=== PATIENT | male | born 1950 | race Caucasian/White ===

== ENCOUNTER → 2019-04-18 | Outpatient (CLI) | payer MEDICARE ==
[~2019-04-18] MED LIST: ACET500T68 PO; ALPR0.5T6 PO; DICL100G18 TP; FAMO20TA5 PO; IOHEXOL 180 MG/ML 10 ML VIAL. ONE; LIDO76.5 TP; LISI1TAB23 PO; MULT-658 PO; NAPR-695 PO; methylPREDNISolone ACETATE 40 MG/ML VIAL. ONE; methylPREDNISolone ACETATE 80 MG/ML VIAL. ONE
--- NOTE | 2019-04-19 03:17 | PAIN ---
DATE OF SERVICE: 04/18/2019 INITIAL CONSULTATION FOR PAIN CLINIC CHIEF COMPLAINT: Low back and bilateral lower extremity pain, left greater than right. HISTORY OF PRESENT ILLNESS: This is a 69-year-old male, who presents with history of pain in the low back and into the lower extremities. Since about November of this year, the patient reports no specific injury or action he is aware of. He was sitting in his car, twisted to the side to reach something next to him, felt a popping sensation in his back and has had pain in the back and the legs ever since. The patient reports it is slightly better. He had some chiropractic treatment, which has been helpful, but not decreasing the pain completely. He had done some physical therapy as well as some stretching and strengthening exercises on his own; all of which helped, but they are not getting the pain down significantly fdc. The patient reports the pain is constant, it is intermittent in intensity, changes during the day, radiating into the lower extremities, mostly in the lateral anterior thighs, posterior calves and hips as well, but in the medial lower leg also. The patient reports no loss of motor function, but significant fatigability to the lower extremities, especially on the left side with walking, worse with standing, walking, changing positions, awakens him from sleep at least once or twice at night. It does not affect his bowel or bladder control, but does affect his ability to walk. He is not using any assistive devices, however. The patient did have MRI scan of the lumbar spine showing L4-L5 [id number] disk space narrowing with marked right foraminal stenosis, disk osteophyte complex with impingement on the anterior surface of the foraminal L4 nerve root. L5-S1 shows similar changes with left foraminal extraforaminal disk bulging, approaching the anterior surface of the left foraminal L5 nerve root. The patient rates his disability rating from 0-10, 10 being the worst, as a 5 with family home responsibilities and recreation, 4 with social activity and occupation, 3 with self-care and 4 with life-support activities. PAST MEDICAL HISTORY: Significant for type 2 diabetes, hypertension, arthritis, kidney disease stage 2. PREVIOUS SURGERIES: Include fracture of the right ankle and a skin lesion removed as a child from the neck. CURRENT MEDICATIONS: Include Aspercreme, Tylenol, Voltaren gel, Centrum Silver, naproxen, vitamins, lisinopril, alprazolam and famotidine. ALLERGIES: The patient has no known drug allergies. FAMILY HISTORY: Significant for hypertension and diabetes. SOCIAL HISTORY: The patient does not smoke. Drinks alcohol 1-2 drinks a month at the most. Does not use any illegal, illicit or recreational drugs. Is single. Is currently retired. Lives locally in [place], [place]. REVIEW OF SYSTEMS: The patient's review of systems is positive for those items as mentioned in history of present illness. All systems reviewed and otherwise negative. It is complete, full and well documented on the patient's chart. PHYSICAL EXAMINATION: VITAL SIGNS: The patient's blood pressure is 176/96, pulse 79, respirations 18, temperature 97.2 degrees Fahrenheit, height is 5 feet 8 inches, weight is 195 pounds. GENERAL: The patient is awake, alert, oriented, appropriate, very pleasant demeanor. HEENT: Head is normocephalic, atraumatic. Extraocular movements are intact and symmetrical. Oral cavity: Mucous membranes moist and pink. Dentition is intact. NECK: Shows anterior throat supple without palpable lymphadenopathy noted. Swallow reflex symmetrical. CHEST: Shows normal on inspection. Breath sounds clear to auscultation bilaterally. HEART: Shows S1, S2 clear. No murmurs auscultated. ABDOMEN: Soft, nontender, nondistended. No palpable organomegaly is noted. No rebound or guarding demonstrated. BACK: Shows spine grossly in the midline. Normal-appearing thoracic kyphosis and some minor flattening of the lumbar lordotic curvature. Lumbar paraspinous muscle shows symmetrical on inspection, with palpation shows some mild tenderness throughout the upper, middle and lower distribution of paraspinous muscles that is symmetrical. No tenderness with palpation over the spinous processes over the sacrum or sacroiliac regions. The patient has good rotational motion of lumbar spine, both laterally greater than 10 degrees right and left as well as extension greater than 10 degrees, forward flexion 45 degrees without significant pain reported. EXTREMITIES: The patient's lower extremities show deep tendon reflexes 2+ in the patellar, 1+ tendo-calcaneus tendons. Motor exam is strong with 5/5 dorsiflexion, extension, quadriceps and hamstring flexion and symmetrical. Straight leg raise noted to be positive on the left at about 45 degrees, decreased with knee flexion; right side is negative. Gaenslen and Michel maneuvers are negative bilaterally. The patient's lower extremities are warm and dry to touch, equal in color and appearance. Peripheral pulses are 1+ posterior tibial. No peripheral edema is noted bilaterally. The patient is able to stand, stand on the toes without significant difficulty or loss of balance. Walks with a normal-appearing gait for a short distance in the office today, not using any assistive devices. SKIN: The patient's skin shows warm and dry, good turgor. No edema. No sores, rashes or bruising. IMPRESSION: 1. This is a 69-year-old male with approximate 4-month history of low back and bilateral lower extremity pain in a radicular fashion, worse on the left. 2. MRI scan of lumbar spine as noted. 3. Type 2 diabetes. 4. Hypertension. 5. Arthritis. PLAN: Options were discussed with the patient, including conservative medical management, physical therapy with interventional techniques. He would like to pursue interventional techniques. We discussed a lumbar epidural steroid injection using description as well as anatomical models to describe the procedure. Risks were then discussed, including but not limited to bleeding, infection, possibility of epidural hematoma, subsequent neurological compromise, dural puncture, headaches, spinal cord and/or nerve damage, side effects of steroid medication and poor results regarding pain control. The patient understands and wished to proceed. The patient will return to the clinic in approximately 2 weeks for followup. He is counseled as to return appointment, activity level and side effects to be aware of. DIAGNOSES: Lumbar radiculopathy with lumbar degenerative disk disease. PROCEDURE: Lumbar epidural steroid injection, translaminar approach at L4-L5 level using C-arm fluoroscopic guidance under sterile prep and drape using local anesthetic. MEDICATION INJECTED: Total of 120 mg Depo-Medrol plus 10 mL of preservative-free normal saline and 2 mL of contrast. CONDITION AT DISCHARGE: Stable. The patient tolerated the procedure well, had no complications. SARA DELAROSA MD DR: ISAIAS/sean JOB#: [id number] / [id number] RIGO Geiger MD
== END ==
LOC: PNCL 07:45
PROVIDERS: ATTEND Anesthesiology
DX: M51.16 Intervertebral disc disorders with radiculopathy, lumbar region (principal); E11.22 Type 2 diabetes mellitus with diabetic chronic kidney disease; I12.9 Hypertensive chronic kidney disease with stage 1 through stage 4 chronic kidney disease, or unspecified chronic kidney disease; N18.2 Chronic kidney disease, stage 2 (mild); M79.662 Pain in left lower leg; Z72.89 Other problems related to lifestyle; Z87.39 Personal history of other diseases of the musculoskeletal system and connective tissue; Z79.84 Long term (current) use of oral hypoglycemic drugs
CPT/HCPCS: 62323; J1030; J1040; Q9965

== ENCOUNTER → 2019-05-02 | Outpatient (CLI) | payer MEDICARE ==
[~2019-05-02] MED LIST changes: -IOHEXOL 180 MG/ML 10 ML VIAL. ONE; -methylPREDNISolone ACETATE 40 MG/ML VIAL. ONE; -methylPREDNISolone ACETATE 80 MG/ML VIAL. ONE
--- NOTE | 2019-05-02 12:00 | PN ---
DATE: 05/02/2019 PROGRESS NOTE FOR PAIN CLINIC DIAGNOSES: Lumbar radiculopathy with lumbar degenerative disc disease. HISTORY OF PRESENT ILLNESS: The patient is a 69-year-old male who returns for followup status post lumbar epidural steroid injection x 1 on April 18. The patient reports he did very well with 99% improvement in the low back and left greater than right lower extremity pain. The patient reports some increased activity with greater ease and comfort, walking greater distances, doing work activities, household activities, traveling with greater ease as well. The patient reports he is getting along quite well, has some pain still in the right hip and leg when he is standing for more than about 20-30 minutes, but otherwise doing quite much better. The patient reports that the pain is at 5 on a scale of 10, at its worst over the past week, 3 on average, 2 at its least and is at 2 today. The patient reports it is tingling and aching across the low back. Usually at its worst first thing in the morning, but it gets better as he starts to move around and get through the day. The patient reports no difficulty sleeping, sleeping well through the night. No new bowel or bladder incontinence. No new changes or deficits. PHYSICAL EXAMINATION: VITAL SIGNS: The patient's blood pressure 126/86, pulse 76, respirations 16, temperature 97.7 degrees Fahrenheit and weight is 192 pounds. GENERAL: The patient is awake, alert, oriented, appropriate, very pleasant demeanor. HEENT: Shows normocephalic, atraumatic. Extraocular movements are intact and symmetrical. Oral cavity: Mucous membranes moist and pink. Dentition is intact. NECK: Shows anterior throat supple without palpable lymphadenopathy noted. Swallow reflex symmetrical. CHEST: Shows normal on inspection. Breath sounds are clear to auscultation bilaterally. HEART: Shows S1, S2 clear. No murmurs auscultated. ABDOMEN: Soft, nontender, nondistended. No palpable organomegaly is noted. No rebound or guarding demonstrated. BACK: Shows spine grossly in the midline. Lumbar paraspinous muscle shows symmetrical on inspection, with palpation shows some mild tenderness, but only diffusely in the low lumbar distribution without radiation. The patient has good rotational motion of lumbar spine, both laterally as well as extension and flexion greater than 10 degrees, forward flexion 45 degrees without difficulty or pain reported. EXTREMITIES: Lower extremities show deep tendon reflexes 2+ in the patellar, 1+ in the tendo-calcaneus tendons. Motor exam is strong with 5/5 dorsiflexion, extension, quadriceps and hamstring flexion equal bilaterally. Peripheral pulses are 1+ in the posterior tibia. No peripheral edema is noted. ASSESSMENT AND PLAN: Options were discussed with the patient. The patient's old chart was reviewed as his current medication regimen updated. Current review of systems updated today as well. We will hold on any further injections at this time as the patient is doing quite a bit better, advised him to increase his activity as tolerated, but gradually and slowly. The patient is doing some yard work as well as considering using a stationary bicycle and doing some water aerobics, I have encouraged him to trial these just gradually and increase the activity as tolerated. The patient will follow up at this time on as needed basis. SARA DELAROSA MD DR: ISAIAS/sean JOB#: [id number] / [id number]
== END | disposition home or self-care (01) ==
LOC: PNCL 09:34
PROVIDERS: ATTEND Anesthesiology
DX: M51.16 Intervertebral disc disorders with radiculopathy, lumbar region (principal)
CPT/HCPCS: G0463